=== PATIENT | female | born 1950 | race Hispanic/Latino ===

== ENCOUNTER 2021-03-09 11:40 | Emergency (ER) | payer MEDICARE ==
[~2021-03-09] VITALS: Ht 160 cm; Wt 79.4 kg
[~2021-03-09 11:40] MED LIST: CYCLOBENZAPRINE10 MG PO; DULCOLAX STOOL100 MG PO; OMEPRAZOLE40 MG PO; SIMVASTATIN40 MG PO
[2021-03-09] MEDS ORDERED: ONDANSETRON ODT4 MG PO (13:13)
[2021-03-09] MEDS ORDERED: DEXAMETHASONE6 MG PO (13:13)
[2021-03-09] MEDS ORDERED: ZITHROMAX250 MG PO (13:13)
[2021-03-09] MEDS ORDERED: ONDANSETRON HCL 4 MG ORAL DISINTEGRATING TAB PO ONE ×2 (13:15→13:30)
[2021-03-09 13:28] VITALS: BP 113/72
[2021-03-09] MEDS ORDERED: ONDANSETRON HCL 4 MG ORAL DISINTEGRATING TAB ONE (13:32)
== END 2021-03-09 13:30 | disposition home or self-care (01) ==
LOC: FSED 11:57
DX: R50.9 Fever, unspecified (principal); R05 Cough; J18.9 Pneumonia, unspecified organism
CPT/HCPCS: 71046; 99283; Q0162; U0002